=== PATIENT | male | born 1955 | race Caucasian/White ===

== ENCOUNTER 2024-04-17 15:05 | Observation (INO) | payer MEDICARE ==
[~2024-04-17 15:05] MED LIST: Iopamidol 370 76% 100 ML VIAL ONE
[2024-04-17 15:40] LABS: #Basophils 0.07 10x3/uL (0.0-0.2); #Eosinophils 0.32 10x3/uL (0.0-0.5); #Monocytes 0.82 10x3/uL (0.0-1.1); #Neutrophils 3.53 10x3/uL (1.5-8.4); %Basophils 1.1 % (0.0-2.0); %Eosinophils 5.1 % (0.0-6.0); %Lymphocytes 23.9 % (18.0-47.0); %Monocytes 13.1 % (0.0-10.0); %Neutrophils 56.6 % (40.0-75.0); Hematocrit 43.3 % (38.8-50.0); Mean Corpuscular HGB CONC 32.3 g/dL (32.0-36.0); Mean Corpuscular Volume 89.6 fL (81.2-95.1); Mean Platelet Volume 9.9 fL (7.4-10.4); Platelet Count 218 10x3/uL (150-450); RBC Distribution Width 12.9 % (11.5-14.5); Red Blood Cell (RBC) Count 4.83 10x6/uL (4.32-5.72); White Blood Cell (WBC) Count 6.2 10x3/uL (3.5-10.5)
[2024-04-17 15:41] LABS: ALT (SGPT) 13 U/L (8-55); AST (SGOT) 15 U/L (5-34); Albumin 3.5 g/dL (3.4-4.8); Alkaline Phosphatase 87 U/L (40-110); Anion Gap 14 mmol/L (10-20); BUN (Urea Nitrogen) 11 mg/dL (8.4-25.7); Bilirubin, Total 0.4 mg/dL (0.2-1.2); Calc. Creatinine Clearance 0 mL/min (70-130); Calcium 8.6 mg/dL (7.8-10.44); Carbon Dioxide 24 mmol/L (23-31); Chloride 105 mmol/L (98-107); Estimated GFR 94; Glucose 80 mg/dL (80-115); Protein, Total 6.5 g/dL (5.8-8.1); Sodium 139 mmol/L (136-145)
[2024-04-17 15:51] LABS: Troponin I 0.016 ng/mL (< 0.028)
[2024-04-17] MEDS ORDERED: Clopidogrel Bisulfate 75 MG TAB ONE (17:20)
[2024-04-17] MEDS ORDERED: hydrALAZINE 20 MG/ML VIAL SLOW IVP PRN (18:26)
[2024-04-17] MEDS ORDERED: Senokot S 8.6-50 MG TAB PO PRN (18:28)
[2024-04-17] MEDS ORDERED: Calcium Carbonate 500 MG ChewTAB PO PRN (18:28)
[2024-04-17] MEDS ORDERED: Acetaminophen 325 MG TAB PO PRN (18:28)
[2024-04-17] MEDS ORDERED: Lorazepam 1 MG TAB ONE (19:22)
[2024-04-17] MEDS: Lorazepam 1 MG TAB PO SCH (19:40)
[2024-04-18 04:08] LABS: Cardiac Risk 5.2 (Less than 4.5)
[2024-04-18 04:18] VITALS: TEMP 98.4
[2024-04-18] MEDS ORDERED: Pantoprazole 40 MG DR.TAB ONE (07:37)
[2024-04-18] MEDS: Pantoprazole 40 MG DR.TAB PO SCH (07:46)
[2024-04-18] MEDS ORDERED: Atorvastatin Calcium 40 MG TAB PO SCH (08:00)
[2024-04-18 12:19] LABS: Hemoglobin A1c 5.5 % (4.0-6.0)
[2024-04-18 15:44] VITALS: BP 121/76
[2024-04-18] MEDS ORDERED: Clopidogrel Bisulfate 75 MG TAB PO SCH (17:00)
[2024-04-19] MEDS ORDERED: FLU (Fluarix Triv) TS24-25(6MOS UP)/PF 45 MCG/0.5 ML Syringe IM ONE (09:00)
== END 2024-04-18 15:45 | disposition home or self-care (01) ==
LOC: CSHERS 15:05 → CSHERHOLD 17:25
PROVIDERS: ADMIT Internal Medicine; ATTEND Hospitalist
PROC: B246YZZ Ultrasonography of Right and Left Heart using Other Contrast (ICD-10-PCS; principal; 2024-04-17)
DX: G45.9 Transient cerebral ischemic attack, unspecified (principal); N40.0 Benign prostatic hyperplasia without lower urinary tract symptoms; K21.9 Gastro-esophageal reflux disease without esophagitis; E78.5 Hyperlipidemia, unspecified; I82.409 Acute embolism and thrombosis of unspecified deep veins of unspecified lower extremity; Z98.890 Other specified postprocedural states; Z88.6 Allergy status to analgesic agent; Z88.2 Allergy status to sulfonamides; Z79.02 Long term (current) use of antithrombotics/antiplatelets
CPT/HCPCS: 0042T; 70450; 70551; 80053; 80061; 82607; 82962; 83036; 84484; 85025; 93005; 93306; 99285; G0378 ×2; Q9967; 36415; 36416

== ENCOUNTER 2024-12-09 18:23 | Emergency (ER) | payer MEDICARE | END 2024-12-09 21:00 | disposition home or self-care (01) | LOC: CSHERS 18:23 | DX: M54.50 Low back pain, unspecified (principal); M54.2 Cervicalgia; V49.60XA Unspecified car occupant injured in collision with unspecified motor vehicles in traffic accident, initial encounter; Y92.481 Parking lot as the place of occurrence of the external cause | CPT/HCPCS: 72125; 72131 ==